=== PATIENT | female | born 1945 ===

== ENCOUNTER 2021-01-16 07:07 | Day surgery (SDC) | payer OTHER ==
[~2021-01-16 07:07] MED LIST: LOTENSIN40 MG PO; NORVASC5 MG PO; PEPCID40 MG PO
[2021-01-16] MEDS ORDERED: IBU800 MG PO (10:54)
[2021-01-16] MEDS ORDERED: BACTRIM 400-801 EACH PO (10:55)
== END 2021-01-16 16:55 | disposition home or self-care (01) ==
LOC: CIR.AMB 07:07
PROVIDERS: ATTEND Obstetrics & Gynecology Gynecology
DX: N81.12 Cystocele, lateral (principal); Z20.822 Contact with and (suspected) exposure to COVID-19